=== PATIENT | female | born 1980 | race Caucasian/White ===

== ENCOUNTER 2016-08-01 10:09 | Inpatient (IN) | payer BC, OTHER ==
[~2016-08-01] VITALS: Ht 167.6 cm; Wt 106.1 kg
[~2016-08-01 10:09] MED LIST: ASPI81TA2 PO; PREN1TAB73 PO
[2016-08-01 16:20] VITALS: BP 125/72; PULSE 77; RESP 18; TEMP 98.6; O2SAT 97
[2016-08-01] MEDS ORDERED: CALCIUM CARBONATE 500mg Chewable TAB PO PRN (16:30)
[2016-08-01] MEDS ORDERED: MAG-AL + SIM LIQUID 30 ML UDC PO PRN (16:30)
[2016-08-01] MEDS ORDERED: ACETAMINOPHEN 500 MG TABLET PO PRN (16:30)
[2016-08-01 16:44] LABS: HCT - HEMATOCRIT 39.2 % (36-46); MEAN CORPUSCULAR HGB 27.8 UUG (26-34); MEAN CORPUSCULAR HGB CONC(MCHC 33.2 GM/DL (31-37); MEAN CORPUSCULAR VOLUME 83.9 UM3 (80-100); MEAN PLATELET VOLUME 11.1 UM3 (9.4-12.4); RED BLOOD COUNT 4.67 M/MM3 (4.00-5.20); WBC - WHITE BLOOD COUNT 8.8 T/MM3 (4.5-11.0)
[2016-08-01] MEDS: LR 1,000 ML IV PRN (19:29)
[2016-08-02] MEDS: LR 1,000 ML IV PRN ×2 (05:33→14:10)
[2016-08-02] MEDS ORDERED: D5LR 1,000 ML IV PRN (06:00)
[2016-08-02] MEDS ORDERED: OXYTOCIN 30 UNIT in D5LR 500 ML SCH (06:00)
--- NOTE | 2016-08-02 10:24 | ANESOB ---
Epidural/ Date/Time DATE: 08/02/16 TIME: 10:20 Preop Diagnosis Procedure: Labor Epidural Plan: Epidural Height: 5 ' 6.00 " Weight: 106.100 kg BMI: kg/m2 P:0 Medications & Allergies Inpatient Medications Current Medications Medications (Trade) Dose Ordered Sig/Catherine Start Time Stop Time Status Last Admin Dose Admin Acetaminophen/ Hydrocodone Bitart ORDERED Q4H PRN 08/01/16 16:30 Lactated Ringer's (Lactated Ringers) 1,000 ml @ 0 mls/hr Q0M PRN 08/01/16 16:16 08/02/16 05:33 0 MLS/HR Acetaminophen (Tylenol Extra Strength) 1-2 TABS = 500-1,000 MG Q4H PRN 08/01/16 16:30 Al Hydroxide/Mg Hydroxide (Maalox) 30 ml Q4H PRN 08/01/16 16:30 Calcium Carbonate (TUMS Regular Strength) 1-2 TABS Q2H PRN 08/01/16 16:30 08/01/16 22:26 1,000 MG Diphenhydramine HCl 50 mg 50 mg HS PRN 08/01/16 19:30 Dextrose/Lactated Ringer's 1,000 ml @ 0 mls/hr Q0M PRN 08/02/16 06:00 08/02/16 05:34 0 MLS/HR Oxytocin/Dextrose/ Lactated Ringer's (Pitocin/D5lr) 503 ml @ 0 mls/hr Q0M 08/02/16 06:00 08/02/16 05:33 0 MLS/HR Aspirin (Aspirin) 81 Mg Tab.chew, 1 TAB PO DAILY, (Reported) Last Taken: on 07/31/162229 Pnv95/Ferrous Fumarate/FA ( Tablet) 1 Each Tablet, 1 TAB PO DAILY, (Reported) Last Taken: on 07/31/162229 Coded Allergies: No Known Drug Allergies (Verified Allergy, Unknown, 05/10/10) Medical/Surgical History Anesthesia PMH: Reports: Asthma, Other (Factor V Leiden), Denies: *Diabetes, Anesthesia Reactions, Cancer, Malignant Hyperthermia Smoking Status: Never smoker Does patient use chewing tobac: No Second Hand Exposure: No Substance Use Type: does not use Alcohol Intake: none Anesthesia Adverse Reactions: FOUND none Family Hx of Anesthesia Advers: none Hx of Motion Sickness: No Complications During : No Pertinent Findings Laboratory Tests 08/01/16 16:37 Physical Exam Respiratory: Bilat breath sounds equal, Lungs clear Cardiovascular: Regular rate, rhythm Airway Assessment Mallampati Score: II TMD: 3 Fingerbreadths Neck Extension: Good Overall Assessment: No Airway Concerns ASA: 2 Discussion Discussed risks/options/alternatives of anesthesia. Patient consents. Nursing pain assessment noted. Present for Discussion: Present: Spouse Attestation Statement Prior to the delivery of any anesthetic medication, I examined the patient, developed the plan, obtained the patient's consent and discussed the risk and benefits of the procedure with the patient/guardian. If the note happens to be signed after anesthesia start time, it is only due to providing efficient care of the patient and documenting at a time when the computer is available. LESTER GARG CRNA Aug 02, 2016 10:24
[2016-08-02] MEDS ORDERED: ROPIVACAINE 1% 200 MG, SUFENTANIL 50 MCG in NORMAL SALINE 80 ML EPI PRN (10:30)
[2016-08-02] MEDS ORDERED: ONDANSETRON 4mg/2ml INJECTION IV PRN (10:30)
[2016-08-02] MEDS ORDERED: DiphenhydrAMINE 50 MG/ML INJECTION IV PRN (10:30)
[2016-08-02] MEDS ORDERED: NALOXONE 0.4mg/ml INJECTION IV PRN (10:30)
[2016-08-02] MEDS ORDERED: OXYTOCIN 30 UNIT in D5W 500 ML IV ONE (15:02)
[2016-08-02] MEDS ORDERED: DiphenhydrAMINE 25 MG CAPSULE PO PRN (15:15)
[2016-08-02] MEDS ORDERED: HYDROCORTISONE 2.5% CREAM 30 GM RECTALLY PRN (15:15)
[2016-08-02] MEDS ORDERED: MILK OF MAGNESIA 30 ML SUSP PO PRN (15:15)
[2016-08-02] MEDS ORDERED: MEASLES-MUMPS-RUBELLA VACCINE 0.5ml INJECTION SQ ONE (15:15)
[2016-08-02] MEDS ORDERED: PHENYLEPHRINE RECTAL SUPPOSITORY RECTALLY PRN (15:15)
--- NOTE | 2016-08-02 17:30 | NUR ---
Epidural Epidural catheter removed without complications, tip intact, no S/S of infection noted. Area cleansed with alcohol, betadine and covered with a bandaid. Pt. educated about S/S of infection and to call doctor with concerns.
--- NOTE | 2016-08-02 17:57 | ANESPO ---
Post-Op Note Date 08/02/16 Time: 17:50 Status Pt Participated in Evaluation: Pt participated in person Vital Signs Date Time Temp Pulse Resp B/P Pulse Ox O2 Delivery O2 Flow Rate FiO2 08/01/16 16:20 98.6 77 18 125/72 97 Room Air Respiratory Function: Airway patent Cardiovascular Function: Regular pulse Mental Status: Alert/oriented Pain Level Intensity: 0 Hydration: Taking po fluids, IV infusing Complications during Recovery None apparent Follow-Up Instructions Instructions Per Surgeon LUANN ROMANO CRNA Aug 02, 2016 17:57
--- NOTE | 2016-08-02 18:20 | PNF ---
DATE OF DELIVERY 08/02/2016 SUMMARY OF DELIVERY Odette is a 35-year-old, 5, para 0, at 40 weeks 4 days gestational age who was brought in for a [place] bulb induction last evening. This morning she was started on Pitocin. Her membranes were ruptured artificially returning meconium-stained fluid. She received an epidural. She progressed nicely throughout labor. However, her Pitocin needed to be turned down and then off due to recurrent late decelerations. When she was complete, she had a prolonged deceleration. Baby recovered, but due to the decelerations, I asked her to start pushing. Baby started in the ROP position. She was +2 station. She was able to rotate baby to ROT. Baby would have a string of late decelerations and then she would recover and looked fine for a while, and this cycle continued to repeat. After an hour's worth of pushing, mom had made no significant descent past +2 station. Baby was looking good at this point, so we decided to let her labor down for a while. She was only on her side for a short while and had another prolonged deceleration. For this reason, I discussed an operative vaginal delivery with the patient and her . We had initially discussed using forceps when baby was ROP. However, at this point, baby was ROT and not in a good position for forceps. Risks of the procedure were explained to the patient. As she was pushing, she would rotate baby to BETTY and then back to ROT between contractions. The hard cup Mityvac was placed on the baby's head and maternal tissue was extruded. The vacuum was pumped up to the green area. I was able to bring baby down from +2 to +4 station. The vacuum kept losing suction, but it did not feel like true pop offs. The vacuum was abandoned after five of these episodes of losing suction. I brought baby down to +4, and I felt mom could deliver the rest of the way. She finally delivered in the BETTY position a viable female . Apgars 3, 7, 9. Weight was 3485 grams. Name: "Ani." Baby was not crying at delivery and had a low heart rate, so the cord was clamped and cut and the was taken to the warmer for further resuscitation. The placenta delivered spontaneously. She had bilateral vaginal lacerations as well as a second- degree perineal laceration. I asked one of the techs to hold a retractor for me while I repaired the vaginal lacerations with running locked 2-0 Vicryl. The remainder of the second-degree laceration was repaired in the normal sterile fashion. At the time of this dictation, mom and baby are both doing well. ANUPAMA
[2016-08-02 18:30] VITALS: BP 135/70; PULSE 103; RESP 16; TEMP 98; O2SAT 100
[2016-08-02] MEDS: IBUPROFEN 800 MG TABLET PO PRN (19:15)
[2016-08-02] MEDS: HYDROCODONE/APAP 5 mg/325 mg TABLET PO PRN (20:58)
--- NOTE | 2016-08-02 22:30 | NUR ---
Feeding not able to latch onto left breast. Nipple doesn't protrude as much as right. Give several suggestions for patient to try when feeding . Pump set up at bedside. Instructed to use pump to try to get that side ready for next feeding.
[2016-08-02 23:00] VITALS: BP 130/58; PULSE 81; RESP 18; TEMP 97.9
[2016-08-03] MEDS: HYDROCODONE/APAP 5 mg/325 mg TABLET PO PRN ×4 (01:22→17:12)
[2016-08-03 05:00] LABS: HCT - HEMATOCRIT 33.5 % (36-46); MEAN CORPUSCULAR HGB 27.9 UUG (26-34); MEAN CORPUSCULAR HGB CONC(MCHC 32.8 GM/DL (31-37); MEAN PLATELET VOLUME 11.8 UM3 (9.4-12.4); RED BLOOD COUNT 3.94 M/MM3 (4.00-5.20); WBC - WHITE BLOOD COUNT 10.9 T/MM3 (4.5-11.0)
[2016-08-03 06:38] VITALS: BP 109/61; PULSE 76; RESP 16; TEMP 98.1
[2016-08-03] MEDS: DOCUSATE CALCIUM 240 MG CAPSULE PO SCH (08:53)
--- NOTE | 2016-08-03 10:33 | PNPDOC ---
Progress Note PPD1 Rubella: Not Immune GBS: Negative Blood Type:O pos Subjective 08/03/16 Lochia: Minimal Pain: Controlled Her stitches and tailbone are pretty sore. Voiding: Voiding Objective Vital Signs Date Time Temp Pulse Resp B/P Pulse Ox O2 Delivery O2 Flow Rate FiO2 08/03/16 06:38 98.1 76 16 109/61 08/02/16 18:30 100 Room Air Urine Output: Good General: Alert and Oriented Abdomen: Fundus Firm, Non-tender Extremities: Non-tender Laboratory Item Value Date Time Hemoglobin 11.0 GM/DL L # 08/03/16 0403 Assessment (1) Vacuum extraction, delivered, current hospitalization Assessment & Plan: MMR given. Plan: Routine Care Plan Expected date of discharge: Aug 04, 2016 ANNA LEWIS MD Aug 03, 2016 10:19
[2016-08-03] MEDS: IBUPROFEN 800 MG TABLET PO PRN ×2 (10:50→20:11)
[2016-08-03 11:38] VITALS: BP 106/55; PULSE 76; RESP 18; TEMP 98.1
--- NOTE | 2016-08-03 12:24 | NUR ---
CM CM ATTEMPTED TO VISIT X2. CM VISITED WITH PT NURSE WHO STATED THAT CM WAS CONSULTED DUE TO FIRST CHILD. NURSE HAS NO CONCERNS FOR CM. NURSE WILL GIVE PT CM CONTACT INFORMATION.
--- NOTE | 2016-08-03 14:42 | NUR ---
Shift Summary VSS. Pt using Ibuprofen and [place] for pain control of perineum. Mod rubra lochia. Having trouble with . Using breastpump after nipple shield. Independent cares.
[2016-08-03 17:00] VITALS: BP 120/54; PULSE 89; RESP 16; TEMP 98.4; O2SAT 98
[2016-08-04 00:30] VITALS: BP 98/54; PULSE 89; RESP 14; TEMP 97.9; O2SAT 97
--- NOTE | 2016-08-04 03:08 | NUR ---
Shift summary: VSS. Pt. is up ad iza and performing self cares. Reports small bleeding. Pt. continues to use ice packs for sore perineum from delivery. Pain controlled with Ibuprofen and [place]. supportive and at bedside.
[2016-08-04] MEDS: IBUPROFEN 800 MG TABLET PO PRN (04:46)
[2016-08-04] MEDS: HYDROCODONE/APAP 5 mg/325 mg TABLET PO PRN ×2 (04:46→09:04)
[2016-08-04] MEDS: DOCUSATE CALCIUM 240 MG CAPSULE PO SCH (09:04)
[2016-08-04 09:09] VITALS: BP 110/62; PULSE 85; RESP 18; TEMP 97.7; O2SAT 98
--- NOTE | 2016-08-04 09:58 | PNPDOC ---
Progress Note PPD2 Rubella: Not Immune GBS: Negative Blood Type:O pos Subjective 08/04/16 Lochia: Minimal Pain: Controlled Voiding: Voiding She requests that I look in her left ear because she felt it pop during pushing. Objective Vital Signs Date Time Temp Pulse Resp B/P Pulse Ox O2 Delivery O2 Flow Rate FiO2 08/04/16 09:09 97.7 85 18 110/62 98 Room Air Urine Output: Good General: Alert and Oriented Left TM intact without erythema. Possible fluid seen behind the TM. The exam was a little more challenging because we only have peds tips for the otoscope here. Assessment (1) Vacuum extraction, delivered, current hospitalization Assessment & Plan: Rec an antihistamine or Sudafed to help her ear drain better. Plan: Routine Care, Discharge Home, Continue PNV ANNA LEWIS MD Aug 04, 2016 09:58
[2016-08-04] MEDS ORDERED: IBUP-1547 PO (10:01)
[2016-08-04] MEDS ORDERED: HYDR-4246 PO (10:01)
== END 2016-08-04 12:26 | disposition home or self-care (01) | DRG 775 ==
LOC: MC 16:05
PROVIDERS: ADMIT Obstetrics & Gynecology; ATTEND Obstetrics & Gynecology
PROC: 10E0XZZ Delivery of Products of Conception, External Approach (ICD-10-PCS; principal; 2016-08-02)
PROC: 0KQM0ZZ Repair Perineum Muscle, Open Approach (ICD-10-PCS; 2016-08-02)
PROC: 3E033VJ Introduction of Other Hormone into Peripheral Vein, Percutaneous Approach (ICD-10-PCS; 2016-08-02)
PROC: 10907ZC Drainage of Amniotic Fluid, Therapeutic from Products of Conception, Via Natural or Artificial Opening (ICD-10-PCS; 2016-08-02)
DX: O76 Abnormality in fetal heart rate and rhythm complicating labor and delivery (principal); O63.1 Prolonged second stage (of labor); O66.5 Attempted application of vacuum extractor and forceps; O32.8XX0 Maternal care for other malpresentation of fetus, not applicable or unspecified; O48.0 Post-term pregnancy; O77.0 Labor and delivery complicated by meconium in amniotic fluid; O70.1 Second degree perineal laceration during delivery; O09.523 Supervision of elderly multigravida, third trimester; O26.23 Pregnancy care for patient with recurrent pregnancy loss, third trimester; O99.284 Endocrine, nutritional and metabolic diseases complicating childbirth; E28.2 Polycystic ovarian syndrome; Z3A.40 40 weeks gestation of pregnancy; Z37.0 Single live birth
CPT/HCPCS: 36415; 85027; 86850; 86900; 86901; 90707